=== PATIENT | male | born 1950 | race Caucasian/White ===

== ENCOUNTER → 2016-09-29 | Outpatient (CLI) | payer BC ==
[~2016-09-29] MED LIST: CALC600T4 PO; FERR159T3 PO; IOHEXOL 180 MG/ML 10 ML VIAL. ONE; LISI10TA2 PO; MULT-245 PO; NAPR250T2 PO; NIAC500T9 PO; OMEG300C PO; VIT1TABL32 PO; methylPREDNISolone ACETATE 40 MG/ML VIAL. ONE; methylPREDNISolone ACETATE 80 MG/ML VIAL. ONE
--- NOTE | 2016-09-30 04:17 | PAIN ---
DATE OF SERVICE: 09/29/2016 DIAGNOSES: Lumbar radiculopathy with post-lumbar laminectomy syndrome and lumbar spinal stenosis. HISTORY OF PRESENT ILLNESS: The patient is a 66-year-old male who returns for followup status post caudal approach epidural steroid injection x 2. The patient reports first injection about 95% improvement, last one was only about 50%. The patient reports still some significant pain in the left part of his low back and into the left leg, mostly in the lateral anterior aspect of the thigh, lateral posterior thigh, medial and anterior aspect of the lower leg to the ankle. The patient reports it is aching pain with some minimal numbness now in the lower leg, but more pain, not severe, but still significantly present. The patient reports it ____4-8 on a scale of 10, worse with activity, standing and walking, better with lying down or sitting down and has not been awakening from sleep at night. The patient reports no new motor or sensory deficits, no new bowel or bladder incontinence or other complaints. PHYSICAL EXAMINATION: VITAL SIGNS: The patient's blood pressure 129/74, pulse 69, respirations 18, temperature 97.5 degrees Fahrenheit, height 6 feet, weight is 185. GENERAL: The patient is awake, alert, oriented, appropriate, very pleasant demeanor. HEENT: Head shows normocephalic, atraumatic. Extraocular movements are intact and symmetrical. Oral cavity shows mucous membranes moist and pink. Dentition is intact. NECK: Shows anterior throat supple without palpable lymphadenopathy noted. Swallow reflex is symmetrical. Neck shows full rotational motion of the cervical spine without difficulty or tenderness. CHEST: Shows normal on inspection. Breath sounds are clear to auscultation bilaterally. HEART: Shows S1 and S2 clear. ABDOMEN: Soft, nontender, nondistended. No palpable organomegaly is noted. No rebound or guarding demonstrated. BACK: Shows spine grossly midline. Well healed surgical scars noted in the lumbar distribution. Lumbar paraspinous muscle shows some moderate tenderness with palpation bilaterally in the lower lumbar distribution only without radiation, without atrophy, hypertrophy. The patient shows good rotational motion both laterally as well as extension and flexion without difficulty. LOWER EXTREMITIES: Showed deep tendon reflexes at 2+ in the patellar and tendo calcaneus tendons are equal. Motor exam is strong with 5/5 dorsiflexion, extension, quadriceps and hamstring flexion and symmetrical. Options were discussed with the patient and the patient's old chart was reviewed and his current medication regimen updated. Current review of systems updated today as well. We will proceed with the third caudal approach epidural steroid injection today with fluoroscopic guidance. Risks were again discussed including, but not limited to bleeding, infection, possibility of epidural hematoma, subsequent neurologic compromise, dural puncture, headaches, spinal cord and/or nerve damage, side effects of steroid medication and poor results regarding pain control. The patient understands and wishes to proceed. The patient will have the third injection in a series of 3, will be eligible for more injections about 6 months from the first injection also discussed following up with his neurosurgeon. He does have a synovial cyst at the L4-L5 left level in the low back and if this continues to cause radicular symptoms, may need to be surgically removed. The patient understands and agrees, will see how he does after today's injection and proceed from there. DIAGNOSES: Lumbar radiculopathy with lumbar spinal stenosis and post-lumbar laminectomy syndrome. PROCEDURE: Lumbar caudal approach epidural steroid injection with fluoroscopic guidance under sterile prep and drape using local anesthesia and C-arm fluoroscopic guidance. MEDICATIONS INJECTED: Depo-Medrol 120 mg plus per 10 mL preservative-free normal saline and 2 mL of Isovue contrast. CONDITION AT DISCHARGE: Stable. The patient tolerated the procedure well, had no complications. SCOTTIE LOPEZ MD DR: TENNILLE/luis JOB#: [id number] / [id number]
== END ==
LOC: PNCL 08:51
PROVIDERS: ATTEND Anesthesiology
DX: M48.06 Spinal stenosis, lumbar region (principal); M54.16 Radiculopathy, lumbar region; M96.1 Postlaminectomy syndrome, not elsewhere classified
CPT/HCPCS: 62323; J1030; J1040

== ENCOUNTER → 2016-11-24 | Outpatient (CLI) | payer BC ==
[~2016-11-24] MED LIST changes: +ASPI1TAB30 PO; -IOHEXOL 180 MG/ML 10 ML VIAL. ONE; -methylPREDNISolone ACETATE 40 MG/ML VIAL. ONE; -methylPREDNISolone ACETATE 80 MG/ML VIAL. ONE
--- NOTE | 2016-11-24 15:12 | EKG ---
[facility] [address] [place] [address] Test Date: 2016-11-24 Test Time: 15:11:39 Pat Name: GABRIELLA ZIMMER Department: Room: Gender: M Spring Tester: PATRICIA : 1950 Requested By: MARC CRUM Order Number: [id number] Reading MD: Zhao Dunaway Measurements Intervals [place] Rate: 73 P: -7 OR: 182 QRS: 20 QRSD: 80 T: 15 QT: 346 QTc: 384 Interpretive Statements SINUS RHYTHM Electronically Signed On 11-25-2016 9:55:33 CDT by Zhao Dunaway
[2016-11-24 15:34] LABS: BASO # 0.1 x10^3/uL (0.0-0.2); BASO % 1 % (0-3); EOS % 2 % (0-3); HEMATOCRIT 45.3 % (39.0-53.0); HEMOGLOBIN 15.3 g/dL (13.0-17.5); LYMPH # 2.9 x10^3/uL (1.0-4.8); LYMPH % 31 % (24-48); MEAN CORPUSCULAR HEMOGLOBIN 30 pg (25-35); MEAN CORPUSCULAR HGB CONC 34 g/dL (31-37); MEAN CORPUSCULAR VOLUME 90 fL (79-100); MONO % 7 % (0-9); NEUT % 60 % (31-73); PLATELET COUNT 254 x10^3/uL (140-400); RED BLOOD COUNT 5.04 x10^6/uL (4.30-5.70); RED CELL DISTRIBUTION WIDTH 13.2 % (11.5-14.5); WHITE BLOOD COUNT 9.4 x10^3/uL (4.0-11.0)
[2016-11-24 16:01] LABS: ALBUMIN/GLOBULIN RATIO 1.1 (1.0-1.7); CALCIUM 9.5 mg/dL (8.5-10.1); GFR 75.2; POTASSIUM 4.1 mmol/L (3.5-5.1); TOTAL BILIRUBIN 0.5 mg/dL (0.2-1.0); TOTAL PROTEIN 7.5 g/dL (6.4-8.2)
--- NOTE | 2016-11-25 10:04 | PREOP HP ---
DATE OF SERVICE: 11/27/2016 HISTORY OF PRESENT ILLNESS: The patient is a pleasant 66-year-old man who is having difficulty with low back pain and pain which radiates into his left posterior leg. The problem started on 06/08/2016; it began spontaneously. He says the pain is usually most severe in the morning and improves to some degree as time passes. He has had physical therapy and three epidural steroid injections. He said the first injection helped him with the severe pain, but that they are no longer effective. Standing and walking increase his pain overall. Rest does help. He did have lumbar surgery 9 years ago and did well from that. He does not notice weakness in his legs. The principal problem is pain. PAST MEDICAL HISTORY: Hypertension and shingles. PAST SURGICAL HISTORY: Rotator cuff surgery in 2002 and pinched nerve in 2007. FAMILY HISTORY: Cancer, heart problems/disease, hypertension. SOCIAL HISTORY: Retired. . Exercises daily on treadmill. Denies tobacco use and drug use. Drinks alcohol one or two times per month. Drinks coffee, tea, and soda daily. ALLERGIES: MOTRIN. CURRENT MEDICATIONS: Lisinopril, calcium, iron daily, vitamin, niacin, fish oil, Excedrin, Ocuvite. REVIEW OF SYSTEMS: The 12-point review of systems is complete and was noncontributory except for that mentioned above. NEUROSURGERY EXAMINATION: GENERAL APPEARANCE: Alert, pleasant, in no acute distress. HEAD: Normocephalic and atraumatic. SKIN: Warm and dry. MUSCULOSKELETAL: Lumbar paraspinal muscle bulk is normal, restricted range of motion of lumbar spine, sber-tx-tlypddyl tenderness of lower lumbar spine with palpation, normal range of motion of the lower extremities bilaterally. EXTREMITIES: No clubbing, cyanosis, or edema. NEUROLOGIC: Alert and oriented x 3, normal recent and remote memory, strength 5/5 in bilateral lower extremities, sensory was intact to light touch in bilateral lower extremities. Reflexes were present and symmetric in the lower extremities bilaterally, positive straight leg raising on the left, negative straight leg raising on the right, normal gait. IMAGING REVIEWED: I reviewed a lumbar MRI scan. On that study at L4-L5, there is focal synovial cyst in the left lateral recess measuring about 0.4 cm in the greatest diameter. It is narrowing the lateral recess abutting the left L5 nerve root. ASSESSMENTS: 1. Other bursal cyst, unspecified site. 2. Radiculopathy, lumbar region. 3. Spinal stenosis, lumbar region. PLAN: The patient has a focal synovial cyst with lateral recess narrowing and radiculopathy associated with this. He has failed to improve with physical therapy as well as epidural steroid injections. At this point, I feel he should have surgery to remove the synovial cyst and decompress the nerve root. We discussed surgery, the risks, and expected postoperative period. He would like to go ahead. We will make the arrangements. MARC CRUM MD DR: CODI/luis JOB#: [id number] / [id number]
== END | disposition home or self-care (01) ==
LOC: SURGPAT 16:25
PROVIDERS: ATTEND Neurological Surgery
DX: Z01.818 Encounter for other preprocedural examination (principal); I10 Essential (primary) hypertension
CPT/HCPCS: 36415; 80053; 83036; 85027; 87641; 93005

== ENCOUNTER 2016-11-27 06:49 | Day surgery (SDC) | payer BC ==
[~2016-11-27] VITALS: Ht 182.9 cm; Wt 79.4 kg
--- NOTE | 2016-11-27 06:36 | PREOP HP ---
DATE OF SERVICE: 11/27/2016 HISTORY OF PRESENT ILLNESS: The patient is a pleasant 66-year-old man who is having difficulty with low back pain and pain which radiates into his left posterior leg. The problem started on 06/08/2016; it began spontaneously. He says the pain is usually most severe in the morning and improves to some degree as time passes. He has had physical therapy and three epidural steroid injections. He said the first injection helped him with the severe pain, but that they are no longer effective. Standing and walking increase his pain overall. Rest does help. He did have lumbar surgery 9 years ago and did well from that. He does not notice weakness in his legs. The principal problem is pain. PAST MEDICAL HISTORY: Hypertension and shingles. PAST SURGICAL HISTORY: Rotator cuff surgery in 2002 and pinched nerve in 2007. FAMILY HISTORY: Cancer, heart problems/disease, hypertension. SOCIAL HISTORY: Retired. . Exercises daily on treadmill. Denies tobacco use and drug use. Drinks alcohol one or two times per month. Drinks coffee, tea, and soda daily. ALLERGIES: MOTRIN. CURRENT MEDICATIONS: Lisinopril, calcium, iron daily, vitamin, niacin, fish oil, Excedrin, Ocuvite. REVIEW OF SYSTEMS: The 12-point review of systems is complete and was noncontributory except for that mentioned above. NEUROSURGERY EXAMINATION: GENERAL APPEARANCE: Alert, pleasant, in no acute distress. HEAD: Normocephalic and atraumatic. SKIN: Warm and dry. MUSCULOSKELETAL: Lumbar paraspinal muscle bulk is normal, restricted range of motion of lumbar spine, lwxl-rs-syovdhes tenderness of lower lumbar spine with palpation, normal range of motion of the lower extremities bilaterally. EXTREMITIES: No clubbing, cyanosis, or edema. NEUROLOGIC: Alert and oriented x 3, normal recent and remote memory, strength 5/5 in bilateral lower extremities, sensory was intact to light touch in bilateral lower extremities. Reflexes were present and symmetric in the lower extremities bilaterally, positive straight leg raising on the left, negative straight leg raising on the right, normal gait. IMAGING REVIEWED: I reviewed a lumbar MRI scan. On that study at L4-L5, there is focal synovial cyst in the left lateral recess measuring about 0.4 cm in the greatest diameter. It is narrowing the lateral recess abutting the left L5 nerve root. ASSESSMENTS: 1. Other bursal cyst, unspecified site. 2. Radiculopathy, lumbar region. 3. Spinal stenosis, lumbar region. PLAN: The patient has a focal synovial cyst with lateral recess narrowing and radiculopathy associated with this. He has failed to improve with physical therapy as well as epidural steroid injections. At this point, I feel he should have surgery to remove the synovial cyst and decompress the nerve root. We discussed surgery, the risks, and expected postoperative period. He would like to go ahead. We will make the arrangements. MARC CRUM MD DR: CODI/luis JOB#: [id number] / [id number]
[~2016-11-27 06:49] MED LIST changes: +BACITRACIN 50,000 UNIT in IV NORMAL SALINE 1000ML BAG 1,000 ML IRR ONE; +BUPIVAC MPF-EPI 0.5%-1:200000 30 ML VIAL. ONE; +CEFAZOLIN 2GM PREMIX 50 ML IV PRN; +FENTANYL PF 100 MCG/2 ML VIAL. IV PRN; +GELATIN SPONGE SIZE 100. ONE; +IV RINGERS,LACTATED 1000ML 1,000 ML IV SCH; +KETOROLAC 60 MG/2 ML INJ FOR OR. ONE; +LIDOCAINE 1% 1 ML SYRINGE. ID PRN; +MIDAZOLAM HCL/PF 2 MG/2 ML VIAL. IV PRN; +THROMBIN 20,000 UNIT SPRAY.SYRN KIT TP ONE
[2016-11-27] MEDS ORDERED: DEXAMETHASONE SOD PHOS 20 MG/5 ML VIAL. ONE (08:13)
[2016-11-27] MEDS ORDERED: ONDANSETRON PF 4 MG/2 ML VIAL. ONE (08:13)
[2016-11-27] MEDS ORDERED: PROPOFOL 50 ML IV ONE ×2 (08:13→10:20)
[2016-11-27] MEDS ORDERED: LIDOCAINE 2% 100 MG/5 ML SYRINGE. ONE (08:13)
[2016-11-27] MEDS ORDERED: PROPOFOL 20 ML IV ONE (08:13)
[2016-11-27] MEDS ORDERED: REMIFENTANIL 2 MG VIAL. IV ONE (08:14)
[2016-11-27] MEDS ORDERED: ROCURONIUM 50 MG/5 ML VIAL. ONE (08:14)
[2016-11-27] MEDS ORDERED: FENTANYL PF 100 MCG/2 ML VIAL. ONE (08:14)
[2016-11-27] MEDS ORDERED: PHENYLEPHRINE 10 MG/ML VIAL. ONE (08:19)
[2016-11-27] MEDS ORDERED: MIDAZOLAM HCL/PF 2 MG/2 ML VIAL. ONE (08:26)
[2016-11-27] MEDS ORDERED: NEOSTIGMINE METHYLSULFATE 5 MG/5 ML SYRINGE. ONE (09:27)
[2016-11-27] MEDS ORDERED: GLYCOPYRROLATE 1 MG/5 ML VIAL. ONE (09:27)
[2016-11-27] MEDS ORDERED: DESFLURANE > 120 MINUTES IH ONE (10:28)
--- NOTE | 2016-11-27 10:53 | DISCH ---
DISCHARGE INSTRUCTIONS Condition on Discharge Condition on Discharge: Stable Activity After Discharge Activity Instructions for Disc: Activity as tolerated, Avoid exertion Other activity instructions: no driving for a week Bathing Instructions: Shower-keep dressing dry Lifting Instructions after Dis: No heavy lifting, No pulling or pushing, Do not lift >10 pounds Diet after Discharge Additional Diet Restrictions: resume home diet Wound Incision Care Wound/Incision Care: Ice to area for comfort Other wound/incision instructi: may remove dressing in 48 hrs if dry then may shower- no soaking Contacting the after DC Call your doctor for: Concerns you may have Follow-Up Follow up with: Dr. Crum in 2 weeks [phone] MARC CRUM MD Nov 27, 2016 10:53
[2016-11-27] MEDS ORDERED: CYCL10TA2 PO (10:55)
[2016-11-27] MEDS ORDERED: HYDR-2678 PO (10:55)
[2016-11-27] MEDS ORDERED: HYDROCODONE/APAP 7.5/325MG TABLET. PO ONE (11:45)
[2016-11-27 12:45] VITALS: BP 123/63
--- NOTE | 2016-12-01 15:08 | PATHOLOGY ---
PATHOLOGY REPORT * * * * * * * * FINAL DIAGNOSIS: Segments of fibrocartilaginous, fibroadipose and skeletal muscle tissue and bone, lumbar decompression: - Degenerative changes of fibrocartilaginous tissue. - Synovial cyst. COMMENT: There is no evidence of an acute inflammatory process or malignancy. (JPM:csd; d/t: 12/01/2016) REPORT ELECTRONICALLY SIGNED BY: Vernon Mensah M.D. DATE/TIME: 12/01/2016 15:07 * * * * * * * * GROSS PATHOLOGY: Received in formalin labeled "Gabriella Woo - lumbar decompression and synovial cyst," are multiple segments of white-palacios to pink-palacios, rubbery and gritty tissue admixed with possible bone, measuring 6.0 x 5.3 x 1.2 cm in aggregate dimensions. The tissue is submitted representatively in cassette A1, following decalcification. (TTL:JPM:csd; 11/28/2016) INITIAL CPT CODE(S): A; 89563, 13598 Professional services [place] [facility] [place] [address] Technical services performed by [facility] at [address] [place] [address]. SPECIMEN(S) RECEIVED: A.Lumbar decompression and synovial cyst CLINICAL HISTORY: Lumbar stenosis PATIENT: GABRIELLA WOO /AGE: 12 1950 (Age: 66) PATIENT #: [id number] ALT CASE #: SPECIMEN COLLECTION DATE: 11/27/2016 SPECIMEN RECEIVED DATE: 11/27/2016 [facility] - [address] [place] [address] - PHONE: [phone] * * * END OF REPORT * * *
--- NOTE | 2016-12-04 17:16 | OP ---
DATE OF SURGERY: PREOPERATIVE DIAGNOSIS: Synovial cyst, left L4-L5 with left lumbar radiculopathy. POSTOPERATIVE DIAGNOSIS: Synovial cyst, left L4-L5 with left lumbar radiculopathy. OPERATION PERFORMED: Hemilaminotomy L4-L5 left removal of synovial cyst decompression of dura and nerve root. The operation was done with EMG monitoring, fluoroscopy, and microscopic dissection. STAMPING MACHINE OPERATOR: ALBERT Barnard, assisted with the surgery. She assisted with the microdecompression as well as the closure. OPERATIVE INDICATIONS: The patient is a very pleasant 66-year-old man who developed intractable back and left leg pain beginning about 6 months ago. The pain was severe. He had a physical therapy and epidural steroid injections, which gave no lasting relief. There was a synovial cyst in the left side at L4-L5, which was compressing left lateral recess and I recommended lumbar microsurgery. I spoke with him about the surgery, the risks, the technique and the expected postoperative course and he wished to go ahead. DESCRIPTION OF PROCEDURE: Following general endotracheal anesthesia, the patient was positioned prone on the operating table. We were careful to avoid any pressure points. His lumbar region was prepped and draped in standard fashion. PRIYANKA hose and AV impulse boots were applied for DVT prophylaxis. A microscope was draped, fluoroscopy was draped and brought into the field. Ancef 2 g was given less than 1 hour prior to initiation of the surgery. Using fluoroscopic guidance, a small midline incision was made over the L4-L5 interspace. I dissected down through the skin and subcutaneous tissue and reflected the paraspinal muscles and placed a [place] micro disk retractor, brought in the microscope. Using high speed air drill, I burred out a generous hemilaminotomy and then trimmed away thickened ligamentum flavum and as I worked laterally, I encountered synovial cyst, which was densely scarred to the underlying dura. I worked and gently developed a plane between the cyst and the dura was able to then peel the cyst down and away working from medial to lateral. I drilled and worked farther laterally and created a void into which I could more recently dissected and as I worked, I was able to completely remove the cyst and obliterate its origin. I performed a partial foraminotomy and I explored carefully, I assured myself that the region was completely decompressed. At this point, then I did use small amounts of bone wax as well as bipolar cautery for any bleeding. I had an excellent decompression. I irrigated copiously. The disk was firm and no diskectomy was warranted. I removed the retractor, obtained hemostasis in the muscle and then I closed the wound in layers after irrigating and then closed subcutaneous tissue and closed the skin with a 4-0 subcuticular stitch. Operation went very well and the patient was taken to recovery room in excellent condition. I was quite pleased with the surgery. MARC CRUM MD DR: CODI/luis JOB#: [id number] / [id number]
== END 2016-11-27 13:00 | disposition home or self-care (01) ==
LOC: SURG 06:49
PROVIDERS: ATTEND Neurological Surgery
DX: M54.16 Radiculopathy, lumbar region (principal); M71.38 Other bursal cyst, other site; I10 Essential (primary) hypertension; M19.012 Primary osteoarthritis, left shoulder; M19.011 Primary osteoarthritis, right shoulder; E11.9 Type 2 diabetes mellitus without complications; D64.9 Anemia, unspecified
CPT/HCPCS: 63267; 76000; 82947; 88304; 88311; 97162; 97530; G8978; G8979; G8980; J0690; J1100; J1885; J2250; J2405; J2704; J2710; J3010; J3490; J7030; J7120

== ENCOUNTER → 2020-02-15 | Outpatient (CLI) | payer BC ==
[~2020-02-15] MED LIST changes: -ASPI1TAB30 PO; +ASPI1TAB31 PO; -BACITRACIN 50,000 UNIT in IV NORMAL SALINE 1000ML BAG 1,000 ML IRR ONE; -BUPIVAC MPF-EPI 0.5%-1:200000 30 ML VIAL. ONE; -CEFAZOLIN 2GM PREMIX 50 ML IV PRN; +CYCL10TA2 PO; -FENTANYL PF 100 MCG/2 ML VIAL. IV PRN; -GELATIN SPONGE SIZE 100. ONE; +HYDR-2678 PO; -IV RINGERS,LACTATED 1000ML 1,000 ML IV SCH; -KETOROLAC 60 MG/2 ML INJ FOR OR. ONE; -LIDOCAINE 1% 1 ML SYRINGE. ID PRN; -MIDAZOLAM HCL/PF 2 MG/2 ML VIAL. IV PRN; -NAPR250T2 PO; +NAPR250T6 PO; -THROMBIN 20,000 UNIT SPRAY.SYRN KIT TP ONE
== END | disposition home or self-care (01) ==
LOC: LAB 12:45
PROVIDERS: ATTEND Internal Medicine Gastroenterology
DX: Z11.59 Encounter for screening for other viral diseases (principal)
CPT/HCPCS: U0003-CS

== ENCOUNTER → 2020-02-20 | Day surgery (SDC) | payer BC ==
[~2020-02-20] MED LIST changes: -CALC600T4 PO; +CALC600T5 PO; +IV RINGERS,LACTATED 1000ML 1,000 ML IV ONE; +LISI-334 PO; +PROPOFOL 10 MG/ML (20ML) VIAL. IV ONE
[2020-02-20 10:55] VITALS: BP 98/53
--- NOTE | 2020-02-20 11:02 | PREOP HP ---
DATE OF SERVICE: 02/20/2020 REQUESTING PHYSICIAN: Johnnie Longo MD PRIMARY CARE PHYSICIAN: Johnnie Longo MD REASON FOR PROCEDURE: History of colon polyps and colorectal cancer screening. HISTORY OF PRESENT ILLNESS: This is a 69-year-old gentleman who presents today for colorectal cancer screening. He reports a history of polyps in the past and has had a colonoscopy done by Dr. Hdz. He has a daily bowel movement and denies any GI symptoms. He has had a colonoscopy with polypectomy in the past and had followup once in 2013 and 2014. ALLERGIES: MOTRIN. MEDICATIONS: 1. Lisinopril. 2. Aspirin. 3. Calcium. 4. Men's multivitamin. 5. [place]-3. 6. Iron. 7. Niacin. PAST SURGICAL HISTORY: 1. Hemorrhoidectomy. 2. Right rotator cuff repair. 3. Removal of cyst from lumbar spine. 4. Dentures. 5. Back surgery. PAST MEDICAL HISTORY: 1. Colon polyps. 2. Diabetes. 3. Hypertension. 4. Hypercholesterolemia. FAMILY MEDICAL HISTORY: No colorectal cancer. SOCIAL HISTORY: He admits to past tobacco use, but denies current use. He does drink alcohol. REVIEW OF SYSTEMS: A 13-point review of systems was done and is positive as per HPI and otherwise negative. PHYSICAL EXAMINATION: GENERAL: He is a well-developed, well-nourished male, in no apparent distress. HEENT: Oropharynx is clear. CARDIOVASCULAR: S1, S2. LUNGS: Clear. ABDOMEN: Normoactive bowel sounds, soft, nontender, nondistended. EXTREMITIES: No edema. NEUROLOGIC: Awake, alert and oriented x 3. ASSESSMENT AND PLAN: 1. Colorectal cancer screening. 2. History of colon polyps. Thank you for allowing me to participate in the care of this patient. The risks and benefits of colonoscopy including bleeding, perforation, non-diagnosis and sedation were explained and he has agreed to proceed. JC FUENTES MD DR: SYL/luis JOB#: [id number] / [id number]
--- NOTE | 2020-02-21 17:06 | PATHOLOGY ---
[facility] Accession Number: [id number] . 01 Material submitted: . PART A: colon - ASCENDING COLON POLYP BIOPSY. Modifiers: ascending PART B: colon - TRANSVERSE COLON POLYP BIOPSY. Modifiers: transverse . 01 Clinical history: . History of colon polyps . 02 Diagnosis: A. Colon biopsies, ascending colon polyp: - Consistent with hyperplastic polyp/prominent mucosal fold. . B. Colon biopsy, transverse colon polyp: - Hyperplastic polyp. . ([facility]:mm; 02/21/2020) [facility] 02/21/2020 1004 Local . 02 Comment: There are no adenomatous changes or evidence of malignancy. . ([facility]:mm; 02/21/2020) . 02 Electronically signed: . Veronn Mensah MD, Pathologist NPI- [id number] . 01 Gross description: . A. The specimen is received in formalin, labeled "Keisha Chilo, ascending colon polyp biopsy". Received are two segments of pale palacios soft tissue ranging in size from 0.3 to 0.4 cm in maximum dimensions. The specimen is submitted entirely in cassette A1. . B. The specimen is received in formalin, labeled "Keisha Chilo, transverse colon polyp biopsy". Received is a segment of pale palacios soft tissue measuring 0.3 cm in maximum dimensions. The specimen is submitted entirely in cassette B1. ([facility]; 02/20/2020) [facility]AC 02/20/2020 1640 Local . 02 Pathologist provided ICD-10: K63.5, Z86.010 . 02 CPT . 824578, 285410 Specimen Comment: A courtesy copy of this report has been sent to [phone] Specimen Comment: [id number] Specimen Comment: Report sent to / DR BETANCOURT Performed at: 01 [facility] [address], [place], [place] [address] MD River Carroll MD Phone: [phone] Performed at: 02 [facility] [address] [place], [place] [id number] MD Vernon Mensah MD Phone: [phone]
== END ==
LOC: ENDOS 08:27
PROVIDERS: ATTEND Internal Medicine Gastroenterology
DX: Z12.11 Encounter for screening for malignant neoplasm of colon (principal); K63.5 Polyp of colon; I10 Essential (primary) hypertension; E11.9 Type 2 diabetes mellitus without complications; E78.00 Pure hypercholesterolemia, unspecified; Z72.0 Tobacco use; K64.0 First degree hemorrhoids; Z79.899 Other long term (current) drug therapy; Z86.010 Personal history of colon polyps; Z98.890 Other specified postprocedural states
CPT/HCPCS: 45380; 88305; J2704

== ENCOUNTER → 2020-03-20 | Outpatient (CLI) | payer BC ==
[2020-02-20 10:55] VITALS: BP 98/53
[~2020-03-20] MED LIST changes: -IV RINGERS,LACTATED 1000ML 1,000 ML IV ONE; -PROPOFOL 10 MG/ML (20ML) VIAL. IV ONE; +REGADENOSON 0.4 MG/5 ML DISP.SYRIN. IV ONE
--- NOTE | 2020-03-20 11:53 | RAD ---
MR#: [id number] Date of Study: 03/20/2020 Ordering Physician: LIZETTE STEVEN, Referring Physician: LIZETTE STEVEN, Tech: Susannah Rodriguez, RDMS, RVT, RTR APPROVED REPORT Patient Location: OUT-PATIENT Laterality:Bilateral Indications Bruit Doppler Spectral Velocity Analysis Right Left pCCA 83/13 cm/spCCA 93/27 cm/s mCCA 93/16 cm/smCCA 82/25 cm/s dCCA 90/23 cm/sdCCA 83/29 cm/s Bulb 73/15 cm/sBulb 78/26 cm/s ECA 77/9 cm/sECA 85/12 cm/s pICA 40/15 cm/spICA 61/23 cm/s Wilmer 81/31 cm/smICA 82/32 cm/s dICA 57/25 cm/sdICA 81/34 cm/s Vert. 41/13 cm/sVert. 41/10 cm/s ICA/CCA 0.87ICA/CCA 1.00 Findings Treviño scale images reveals mild diffuse luminal irregularities. No focal obstruction noted. Normal spectral waveforms and velocities. Normal ICA/CCA ratios bilaterally Antegrade vertebral velocities. Critical Notification Critical Value: No <Conclusion> 1. No significant carotid occlusive disease. Signed by : Lizette Steven, Electronically Approved : 03/20/2020 11:53:15
--- NOTE | 2020-03-20 11:58 | CARD ---
MR#: [id number] Date of Study: 03/20/2020 Ordering Physician: LIZETTE STEVEN, Referring Physician: LIZETTE STEVEN, Tech: Uyne Boland [facility] APPROVED REPORT EXAM: Two-dimensional and M-mode echocardiogram with Doppler and color Doppler. Other Information Quality : Good INDICATION Chest Pain 2D DIMENSIONS RVDd2.9 (2.9-3.5cm)Left Atrium(2D)2.9 (1.6-4.0cm) IVSd0.8 (0.7-1.1cm)Aortic Root(2D)2.9 (2.0-3.7cm) LVDd4.0 (3.9-5.9cm)LVOT Diameter2.1 (1.8-2.4cm) PWd0.8 (0.7-1.1cm)LVDs2.1 (2.5-4.0cm) FS (%) 30.0 %SV57.3 ml LVEF(%)60.0 (>50%) M-Mode DIMENSIONS Aortic Cusp Exc1.44 (1.5-2.0cm) Aortic Valve AoV Peak Rizwan.199.6cm/sAoV VTI43.3cm AO Peak GR.15.9mmHgLVOT Peak Rizwan.106.6cm/s LVOT VTI 23.57cmAO Mean GR.10mmHg MARIA LUISA (VMAX)1.12rc6AOL (VTI)1.97cm2 AI P 1/2 Drhi228ij Mitral Valve MV E Icmiizqu30.6cm/sMV DECEL AXZD821tb MV A Gipavmho90.3cm/sMV AQP93wc E/A Ratio0.8MVA (PHT)3.45cm2 TDI E/Lateral E'12.5E/Medial E'12.4 Tricuspid Valve TR P. Elhfbzqo621ae/sRAP DQGOPXXA0jbOu TR Peak Gr.49czFtSFMV85tpKa Pulmonary Vein S1 Wqibhuss77.5cm/sD2 Zdmmhxwz20.0cm/s LEFT VENTRICLE The left ventricle is normal size. There is normal left ventricular wall thickness. The left ventricu lar systolic function is normal and the ejection fraction is within normal range. The Ejection Fracti on is 60-65%. There is normal LV segmental wall motion. Transmitral Doppler flow pattern is Grade I-a bnormal relaxation pattern. RIGHT VENTRICLE The right ventricle is normal size. The right ventricular systolic function is normal. ATRIA The left atrium size is normal. The right atrium size is normal. The interatrial septum is intact wit h no evidence for an atrial septal defect or patent foramen ovale as noted on 2-D or Doppler imaging. AORTIC VALVE The aortic valve is calcified and displays decreased opening. Doppler and Color Flow revealed mild ao rtic regurgitation. Calculated aortic valve area is 1.9 cm2 with maximum pressure gradient of 17 mmHg and mean pressure gradient of 10 mmHg. Doppler and color-flow analysis revealed mild aortic stenosis . MITRAL VALVE The mitral valve is calcified but opens well. There is no evidence of mitral valve prolapse. There is no mitral valve stenosis. Doppler and Color-flow revealed trace mitral regurgitation. TRICUSPID VALVE The tricuspid valve is normal in structure and function. Doppler and Color Flow revealed trace to mil d tricuspid regurgitation. The PA pressure was estimated at 25 mmHg. There is no tricuspid valve sten osis. PULMONIC VALVE The pulmonic valve is not well visualized. Doppler and Color Flow revealed no pulmonic valvular regur gitation. There is no pulmonic valvular stenosis. GREAT VESSELS The aortic root is normal in size. The ascending aorta is mildly dilated. The IVC is normal in size a nd collapses >50% with inspiration. PERICARDIAL EFFUSION There is no evidence of significant pericardial effusion. Critical Notification Critical Value: No <Conclusion> The left ventricular systolic function is normal and the ejection fraction is within normal range. Th e Ejection Fraction is 60-65%. There is normal LV segmental wall motion. Calculated aortic valve area is 1.9 cm2 with maximum pressure gradient of 17 mmHg and mean pressure g radient of 10 mmHg. Doppler and color-flow analysis revealed mild aortic stenosis. Signed by : Lizette Steven, Electronically Approved : 03/20/2020 11:57:23
--- NOTE | 2020-03-20 15:07 | RAD ---
MR#: [id number] Date of Study: 03/20/2020 Ordering Physician: LIZETTE DUNAWAY, Referring Physician: TAURUS TANG Tech: KAMRON Toure, LILI (R) (N) APPROVED REPORT Test Type: Pharmacological Stress Nurse/Tech: Sherly Zheng RN Test Indications: chest pain Cardiac History: Hypertension Medications: See Electronic Medical Record Medical History: See Electronic Medical Record Resting ECG: SR Resting Heart Rate: 65 bpm Resting Blood Pressure: 123/74mmHg Pretest Chest Pain: No chest pain Nurse/Tech Notes S1,S2 and lungs clear to auscultation. Consent: The procedure was explained to the patient in lay terms. Informed consent was witnessed. Moose eout was entered into [employer]. History and Stress Test performed by ALYSHA Calloway Pharm. Details Pharmacologic stress testing was performed using 0.4mg per 5ml of regadenoson given intravenously ove r 7-10 seconds. Stress Symptoms Dyspnea POST EXERCISE Reason for Termination: Infusion complete Target HR: No Max HR: 91 bpm 65% of Maximum Predicted HR: 138 bpm Max Blood Pressure: 140/63mmHg Blood Pressure response to exercise: Normal blood pressure response during stress. Heart Rate response to exercise: WNL Chest Pain: No. Arrhythmia: No. ST Change: No. INTERPRETATION Stress EKG Conclusion: No evidence of stress induced EKG changes. Imaging Protocol IMAGE PROTOCOL: Rest Tc-99m/stress Tc-99m 1 day Rest: Stress: Viability: Radiopharm.Tc99m KyslymfhlBu47i Sestamibi [id number] 33mCi Img Date 03/20/2020 03/20/2020 Inj-Img Plvl30aol. 75min. Rest Admin Site:IV - Left AntecubitalAdministrator:ALYSHA Calloway Stress Admin Site: IV - Left AntecubitalAdministrator: KAMRON Toure, ARRT (R)(N) STRESS DATA End Diast. Vol.63.0mlEnd Syst. Vol.14.0ml Myocardial Yort003.0gEject. Nyujdkid44.0% Stress Scores Regional WT1.00Summed WT16.00 Regional WM0.00Summed WM0.00 The rest and stress images show normal perfusion, normal contraction and thickening. LV Perf. Quant 17 Seg. SSS0.00 17 Seg. SRS0.00 17 Seg. SDS0.00 Stress Defect Extent (% LAD)0.00Rest Defect Extent (% LAD)0.00Rev. Defect Extent (% LAD)0.00 Stress Defect Extent (% LCX) 0.00Rest Defect Extent (% LCX)0.00Rev. Defect Extent (% LCX)0.00 Stress Defect Extent (% RCA)0.00Rest Defect Extent (% RCA)0.00Rev. Defect Extent (% RCA)0.00 Stress Defect Extent (% SHAGUFTA)0.00Rest Defect Extent (% SHAGUFTA)0.00Rev. Defect Extent (% SHAGUFTA)0.00 Other Information Quality:Average Risk Assessment: Low Risk Conclusion 1. No evidence of EKG changes with stress testing. 2. Normal perfusion at stress/rest. 3. Low risk study. 4. EF > 60%. Signed by : Lizette Dunaway, Electronically Approved : 03/20/2020 15:07:32
== END | disposition home or self-care (01) ==
LOC: NM 08:12
PROVIDERS: ATTEND Internal Medicine Cardiovascular Disease
DX: I08.3 Combined rheumatic disorders of mitral, aortic and tricuspid valves (principal); R09.89 Other specified symptoms and signs involving the circulatory and respiratory systems; R07.9 Chest pain, unspecified
CPT/HCPCS: 78452; 93017; 93306; 93880; A9500; J2785

== ENCOUNTER → 2020-09-05 | Outpatient (CLI) | payer BC, MEDICARE ==
[2020-02-20 10:55] VITALS: BP 98/53
[~2020-09-05] MED LIST changes: -CALC600T5 PO; +CALC600T60 PO; -LISI-334 PO; +LISI10TA16 PO; -LISI10TA2 PO; +LISI20TA18 PO; +NAPR-699 PO; -NAPR250T6 PO; -REGADENOSON 0.4 MG/5 ML DISP.SYRIN. IV ONE
--- NOTE | 2020-09-05 12:21 | RAD ---
US ABDOMEN LTD: 09/05/2020 7:24 AM Indication: 70 years old Male. Abnormal LFTs. Comparison: None. TECHNIQUE: Sonographic evaluation of the right upper quadrant was performed utilizing grayscale and c olor Doppler imaging. FINDINGS: Liver: There is diffuse increased echogenicity of the hepatic parenchyma compatible with diffuse hepa tocellular disease, most commonly due to steatosis. This decreases the sensitivity of ultrasound for the detection of focal hepatic lesions. Simple right hepatic cyst measures 1.4 cm. There is hepatoped al flow within the portal venous system. Right hepatic lobe measures 13.1 cm. Biliary system: CBD measures 4 mm. There is no intrahepatic or extrahepatic biliary dilatation. Gallbladder: No gallstones, wall thickening or pericholecystic fluid. . Sonographic Fonseca sign: Nega tive Pancreas: Poorly visualized. Right kidney: 10.9 x 4.4 x 5.5 cm. No hydronephrosis. There is a simple cyst in the medial right kidn ey measuring 1.5 x 1.4 cm. Free fluid:None. IMPRESSION: 1. There is diffuse increased echogenicity of the hepatic parenchyma compatible with diffuse hepatoce llular disease, most commonly due to steatosis. This decreases the sensitivity of ultrasound for the detection of focal hepatic lesions. 2. Simple hepatic and renal cyst. 3. Contracted gallbladder, limiting evaluation. Electronically signed by: Kateryna Milan MD (09/05/2020 12:19 PM) [place] [id number]
== END ==
LOC: US 06:55
PROVIDERS: ATTEND Family Medicine
DX: N28.1 Cyst of kidney, acquired (principal); K76.89 Other specified diseases of liver
CPT/HCPCS: 76705